=== PATIENT | female | born 1950 | race Caucasian/White ===

== ENCOUNTER 2016-11-04 10:07 | Emergency (ER) | payer OTHER, MEDICARE ==
[2017-02-05] MEDS ORDERED: TENORMIN 25 MG25 MG PO (20:12)
[2017-02-05] MEDS ORDERED: ASPIR 8181 MG PO (20:13)
[2017-02-06] MEDS ORDERED: PROTONIX40 MG PO (19:19)
[2017-02-06] MEDS ORDERED: TRICOR 145 MG145 MG PO (19:19)
[2017-02-06] MEDS ORDERED: HYDROCHLOROTHIA25 MG PO (19:20)
[2017-02-06] MEDS ORDERED: LISINOPRIL20 MG PO (19:21)
[2017-02-06] MEDS ORDERED: LIPITOR40 MG PO (19:21)
== END 2016-11-04 11:40 | disposition home or self-care (01) ==
LOC: ER1 10:07
DX: S40.021A Contusion of right upper arm, initial encounter (principal); I10 Essential (primary) hypertension; W18.39XA Other fall on same level, initial encounter; Y92.009 Unspecified place in unspecified non-institutional (private) residence as the place of occurrence of the external cause; Z79.899 Other long term (current) drug therapy
CPT/HCPCS: 73060; 99283

== ENCOUNTER → 2021-01-19 | Outpatient (CLI) | payer MEDICARE ==
[~2021-01-19] MED LIST: AMOXICILLIN500 MG PO; ASPIR 8181 MG PO; HYDROCHLOROTH12.5 MG PO; HYDROCHLOROTHIA25 MG PO; IBUPROFEN800 MG PO; LIPITOR40 MG PO; LISINOPRIL10 MG PO; LISINOPRIL20 MG PO; MOBIC15 MG PO; PROTONIX40 MG PO; TENORMIN 25 MG25 MG PO; TRICOR 145 MG145 MG PO
== END ==
LOC: KOH-I 15:14
DX: E55.9 Vitamin D deficiency, unspecified (principal); I25.10 Atherosclerotic heart disease of native coronary artery without angina pectoris; R79.89 Other specified abnormal findings of blood chemistry; E78.5 Hyperlipidemia, unspecified; L40.50 Arthropathic psoriasis, unspecified; M85.88 Other specified disorders of bone density and structure, other site
CPT/HCPCS: 77080

== ENCOUNTER → 2021-01-19 | Outpatient (CLI) | payer MEDICARE | LOC: MAMO 14:13 | DX: Z12.31 Encounter for screening mammogram for malignant neoplasm of breast (principal); I25.10 Atherosclerotic heart disease of native coronary artery without angina pectoris; E55.9 Vitamin D deficiency, unspecified; R79.89 Other specified abnormal findings of blood chemistry; E78.5 Hyperlipidemia, unspecified; L40.50 Arthropathic psoriasis, unspecified | CPT/HCPCS: 77063; 77067 ==

== ENCOUNTER 2021-12-24 08:19 | Emergency (ER) | payer MEDICARE ==
[2021-12-24 10:13] LABS: HEMOGLOBIN 14.6 gm/dl (12.3-15.3); RED BLOOD COUNT 4.48 M/UL (4.00-5.10); WHITE BLOOD COUNT 9.1 K/UL (4.5-11.0)
[2021-12-24 11:04] LABS: BUN/CREATININE RATIO 21 (0-10)
== END 2021-12-24 13:36 | disposition home or self-care (01) ==
LOC: ER1 08:19
PROVIDERS: Emergency Medicine
DX: M54.12 Radiculopathy, cervical region (principal); R06.02 Shortness of breath; E78.5 Hyperlipidemia, unspecified; I10 Essential (primary) hypertension
CPT/HCPCS: 70450; 80053; 81001; 82550; 82553; 83690; 84484; 85025; 99284; Q9967

== ENCOUNTER 2022-01-14 12:27 | Emergency (ER) | payer MEDICARE ==
[2022-01-14] MEDS ORDERED: ZITHROMAX250 MG PO (21:41)
[2022-01-14] MEDS ORDERED: VISTARIL25 MG PO (21:41)
[2022-01-14] MEDS ORDERED: MEDROL4 MG PO (21:41)
== END 2022-01-15 03:18 | disposition left against medical advice (07) ==
LOC: ER1 12:27
DX: Z53.21 Procedure and treatment not carried out due to patient leaving prior to being seen by health care provider (principal)
CPT/HCPCS: 94664; 94760

== ENCOUNTER 2022-01-14 19:36 | Emergency (ER) | payer MEDICARE ==
[2022-01-14 20:26] LABS: HEMOGLOBIN 13.4 gm/dl (12.3-15.3); RED BLOOD COUNT 4.15 M/UL (4.00-5.10)
[2022-01-14 20:53] LABS: BUN/CREATININE RATIO 23 (0-10)
[2022-01-14] MEDS ORDERED: MEDROL4 MG PO (21:41)
[2022-01-14] MEDS ORDERED: VISTARIL25 MG PO (21:41)
[2022-01-14] MEDS ORDERED: ZITHROMAX250 MG PO (21:41)
== END 2022-01-14 22:04 | disposition home or self-care (01) ==
LOC: ER1 19:36
PROVIDERS: Preventive Medicine Occupational Medicine
DX: J02.9 Acute pharyngitis, unspecified (principal); T78.40XA Allergy, unspecified, initial encounter; I10 Essential (primary) hypertension; Z20.822 Contact with and (suspected) exposure to COVID-19
CPT/HCPCS: 0240U; 36600; 70490; 71045; 80053; 81001; 82550; 82553; 82803; 83690; 83880; 84484; 85025; 85652; 86140; 87086; 93005; 96374; 96375; 99284; J1200; J2930